=== PATIENT | male | born 1965 ===

== ENCOUNTER 2024-12-11 08:16 | Outpatient (AMB) | payer MEDICAID, SELFPAY ==
--- NOTE | 2024-12-11 08:28 | ORTHONT_ITS ---
Vital signs 12/11/24 08:29 Height 1.7 m Height Method Stated Weight 102.569 kg Weight Measurement Method Standing Scale BMI 35.4 BP 149/93 H Blood Pressure Source Automatic Cuff Blood Pressure Location Left Upper Arm Position Sitting Respiration 18 Pulse 85 Pulse Source Monitor Temp 97.3 F Temp Source Temporal Artery Scan Pulse Oximetry (%) 93 L Oxygen Delivery Method Room Air Med/Allergies Allergies & Medications Allergies No Known Allergies Allergy (Verified 12/11/24 08:30) Medication Reconciliation meloxicam 7.5 mg tablet 7.5 mg PO QDAY #45 tabs 12/11/24 [Rx] meloxicam 7.5 mg tablet 7.5 mg PO QDAY #45 tabs 12/11/24 [Rx] Exam Exam Patient is in no acute distress and is cooperative with the examination today. Breathing is nonlabored. Patient has a normal mood and affect. Bilateral extremities were evaluated and demonstrates sensation intact to light touch. Palpable pedal pulses are present. No significant edema is present. Bilateral hips were examined. The patient has no pain with log roll of the hips. Internal rotation to 30 degrees and external rotation to 30 degrees is painless. Negative FADIR. Right knee was examined today. The right knee is in reasonable alignment. Range of motion from 0-120 degrees. Knee is stable to varus and valgus as well as AP translation with <5mm. Patient has a negative McMurrays. There is no pain with patellofemoral compression and no crepitus noted. The knee is nontender to palpation. Left knee was examined today. The left knee is in varus alignment. Range of motion from 0-115 degrees. Knee is stable to varus and valgus as well as AP translation with <5mm. Patient has a negative McMurrays. There is no pain with patellofemoral compression and no crepitus noted. The knee is tender to palpation medially. Nonweightbearing x-rays were reviewed. This demonstrates mild to moderate arthritis. There are osteophytes present. He also has a MRI which demonstrates medial lateral meniscus tear as well as severe arthritis Assessment and Plan Problem List (1) Arthritis of left knee: Status: Acute Plan: Patient is a 59-year-old male with left knee pain and left knee arthritis. He has an MRI this demonstrates a degenerative meniscal tear as well as arthritis. We discussed nonoperative operative options. He has not had injections or anti-inflammatories. Will start him with. He will need to get weightbearing x- rays and we will see him for this is done. Office Procedures GNS Level of Care Nursing/Assessment Patient Status: Initial/New Patient Nursing Assessment/Reassesment: Medication Reconciliation, Update PMH in EMR and Vital Signs Coordination of Care: Complex Care and Chronic Disease 1-5, Education Complex Pt/Fam, Consent,records obtained, informed consent, 1 Ins Authorization, Lab and Imaging orders, Results/Orders obtained and Staff clarify orders Special Needs: Language special needs New Patient Charge New Patient Point Assignment: 1124 New Patient Point Charge: GEODETIC ADVISOR Level 4 ([id number]) MA Intake Visit Data Collection New Patient or Established: New Patient (never been to [facility]) Reason for Visit:: LEFT KNEE MEDIAL MENISCUS TEAR Seen by Clinical Staff ONLY (RN/MA): No Inside Contractor Sales Required: Yes PCP or OBGYN visit in last 3 months: Yes Hx Now: No Do You Feel Safe at Home: Yes Authorities Contacted: N/A Questionairres Past Medical History Past Medical History Have you ever been diagnosed with any of the following: Subjective Visit Visit for: new patient and knee (LEFT) Immunization / Flu Flu Vaccine in the Last 12 Months: No Flu Vaccine Exclusion Criteria: No Exclusion Criteria History of Present Illness Chief complaint: Left knee pain Juan is a pleasant 59-year-old male with 1 year of left knee pain. This came out of the blue. He has tried 4 sessions of physical therapy as well as ibuprofen. The pain is medially and on the back of his knee. Personal History Occupation: HOSPICE CASE MANAGER Pain Pain level (0-10): 6 Pain duration: WITH MOVEMENT Pain location: inside (medial), outside (lateral), anterior and posterior Pain quality: sharp and aching Pain timing: increases with activity and stairs Associated signs & symptoms: none Ambulatory data Ambulatory device: none Treatments Improvement with previous injections: No Number of Physical Therapy sessions: 12 Improvement with PT: No Improvement with NSAIDS: no Review of Systems Review of Systems: All systems negative unless otherwise noted in HPI.
[2024-12-11 08:29] VITALS: BP 149/93; PULSE 85; RESP 18; TEMP 36.3; O2SAT 93; BMI 35.4
== END 2024-12-11 08:56 | disposition home or self-care (01) ==
PROVIDERS: PCP Family Medicine; Referring Provider Family Medicine; Supervising Provider Orthopaedic Surgery Adult Reconstructive Orthopaedic Surgery; Visit Provider Orthopaedic Surgery Adult Reconstructive Orthopaedic Surgery
DX: M17.12 Unilateral primary osteoarthritis, left knee (principal); M25.562 Pain in left knee
CPT/HCPCS: 99204; G0463

== ENCOUNTER 2024-12-28 10:29 | Outpatient (AMB) | payer MEDICAID, SELFPAY ==
[2024-12-28 11:01] VITALS: BP 138/90; PULSE 82; RESP 18; TEMP 36.4; O2SAT 95; BMI 36.1
--- NOTE | 2024-12-28 11:01 | PD.ORTHCLVIS ---
Vital signs 12/28/24 11:01 Height 1.7 m Height Method Stated Weight 104.581 kg Weight Measurement Method Standing Scale BMI 36.1 BP 138/90 H Blood Pressure Source Automatic Cuff Blood Pressure Location Left Upper Arm Position Sitting Respiration 18 Pulse 82 Pulse Source Monitor Temp 97.6 F Temp Source Temporal Artery Scan Pulse Oximetry (%) 95 Oxygen Delivery Method Room Air Med/Allergies Allergies & Medications Allergies No Known Allergies Allergy (Verified 12/28/24 11:02) Medication Reconciliation meloxicam 7.5 mg tablet 7.5 mg PO QDAY #45 tabs 12/11/24 [Rx Confirmed 12/28/24] meloxicam 7.5 mg tablet 7.5 mg PO QDAY #45 tabs 12/11/24 [Rx Confirmed 12/28/24] Exam Exam Patient is in no acute distress and is cooperative with the examination today. Breathing is nonlabored. Patient has a normal mood and affect. Bilateral extremities were evaluated and demonstrates sensation intact to light touch. Palpable pedal pulses are present. No significant edema is present. Bilateral hips were examined. The patient has no pain with log roll of the hips. Internal rotation to 30 degrees and external rotation to 30 degrees is painless. Negative FADIR. Right knee was examined today. The right knee is in reasonable alignment. Range of motion from 0-120 degrees. Knee is stable to varus and valgus as well as AP translation with <5mm. Patient has a negative McMurrays. There is no pain with patellofemoral compression and no crepitus noted. The knee is nontender to palpation. Left knee was examined today. The left knee is in varus alignment. Range of motion from 0-115 degrees. Knee is stable to varus and valgus as well as AP translation with <5mm. Patient has a negative McMurrays. There is no pain with patellofemoral compression and no crepitus noted. The knee is tender to palpation medially. Nonweightbearing x-rays were reviewed. This demonstrates mild to moderate arthritis. There are osteophytes present. He also has a MRI which demonstrates medial lateral meniscus tear as well as severe arthritis Assessment and Plan Problem List (1) Arthritis of left knee: Status: Acute Plan: Patient is a 59-year-old male with left knee pain and left knee arthritis. She tried to get x-rays at [facility] and was told that he needed authorization. I totally get x-rays here because it is unusual that they need authorization first for an xray Office Procedures GNS Level of Care Nursing/Assessment Patient Status: Established Patient Nursing Assessment/Reassesment: Medication Reconciliation, Update PMH in EMR and Vital Signs Coordination of Care: Complex Care and Chronic Disease 1-5, Education Complex Pt/Fam, Consent,records obtained, informed consent, Lab and Imaging orders, Results/Orders obtained and Staff clarify orders Special Needs: Language special needs Established Patient Charge Established Patient Point Assignment: 110 Established Patient Point Charge: EP Level 3 (80-115) MA Intake Visit Data Collection New Patient or Established: Established Patient (seen at [facility] within 3 years) Reason for Visit:: FOLLOW UP Seen by Clinical Staff ONLY (RN/MA): No Product Lead Required: Yes PCP or OBGYN visit in last 3 months: Yes Hx Now: No Do You Feel Safe at Home: Yes Authorities Contacted: N/A Questionairres Past Medical History Past Medical History Have you ever been diagnosed with any of the following: Subjective Visit Visit for: follow up visit and knee Immunization / Flu Flu Vaccine in the Last 12 Months: No Flu Vaccine Exclusion Criteria: No Exclusion Criteria History of Present Illness Chief complaint: Left knee pain Juan is a pleasant 59-year-old male with 1 year of left knee pain. This came out of the blue. He has tried 4 sessions of physical therapy as well as ibuprofen. The pain is medially and on the back of his knee. Personal History Occupation: WEB DEVELOPER Pain Pain level (0-10): 0 Pain duration: WITH MOVEMENT Pain location: inside (medial), outside (lateral), anterior and posterior Pain quality: sharp and aching Pain timing: increases with activity and stairs Associated signs & symptoms: none Ambulatory data Ambulatory device: none Treatments Improvement with previous injections: No Number of Physical Therapy sessions: 12 Improvement with PT: No Improvement with NSAIDS: no Review of Systems Review of Systems: All systems negative unless otherwise noted in HPI.
== END 2024-12-28 11:19 | disposition home or self-care (01) ==
LOC: HODSRG 10:29
PROVIDERS: PCP Family Medicine; Referring Provider Family Medicine; Supervising Provider Orthopaedic Surgery Adult Reconstructive Orthopaedic Surgery; Visit Provider Orthopaedic Surgery Adult Reconstructive Orthopaedic Surgery
DX: M17.12 Unilateral primary osteoarthritis, left knee (principal); M25.562 Pain in left knee
CPT/HCPCS: 99213; G0463

== ENCOUNTER → 2024-12-28 | Outpatient (CLI) | payer MEDICAID, SELFPAY ==
--- NOTE | 2024-12-28 | XR_ITS ---
Examination: Knee bilateral, 8 views Technique: Knee AP, lateral, oblique each knee total 6 views, right and left axial knees 2 views, total 8 views Date and time of exam: December 28, 2024 1319 hours INDICATIONS: Bilateral knee pain beginning one year ago FINDINGS: Bilateral moderate to advanced tricompartment osteoarthritis, most severe medial joint spaces No patellar dislocation Moderate osteopenia No fractures IMPRESSION: Bilateral moderate to advanced tricompartment osteoarthritis, most severe medial joint spaces
== END | disposition home or self-care (01) ==
PROVIDERS: PCP Family Medicine; Referring Provider Orthopaedic Surgery Adult Reconstructive Orthopaedic Surgery; Visit Provider Orthopaedic Surgery Adult Reconstructive Orthopaedic Surgery
DX: M17.0 Bilateral primary osteoarthritis of knee (principal)
CPT/HCPCS: 73564

== ENCOUNTER 2025-01-01 11:05 | Outpatient (AMB) | payer MEDICAID, SELFPAY ==
--- NOTE | 2025-01-01 11:03 | PD.ORTHTELE ---
Med/Allergies Allergies & Medications Allergies No Known Allergies Allergy (Verified 01/01/25 11:03) Medication Reconciliation meloxicam 7.5 mg tablet 7.5 mg PO QDAY #45 tabs 12/11/24 [Rx Confirmed 01/01/25] meloxicam 7.5 mg tablet 7.5 mg PO QDAY #45 tabs 12/11/24 [Rx Confirmed 01/01/25] Subjective Visit Visit for: follow up visit, knee (LEFT) and x-rays Immunization / Flu Flu Vaccine in the Last 12 Months: No Flu Vaccine Exclusion Criteria: No Exclusion Criteria History of Present Illness Chief complaint: Claudine Martinez is a pleasant 59-year-old male with 1 year of left knee pain. This came out of the blue. He has tried 4 sessions of physical therapy as well as ibuprofen. The pain is medially and on the back of his knee. Pain Pain level (0-10): 0 Associated signs & symptoms: none Ambulatory data Ambulatory device: none Treatments Improvement with previous injections: No Improvement with PT: No Improvement with NSAIDS: no Review of Systems Review of Systems: All systems negative unless otherwise noted in HPI. Assessment and Plan Problem List (1) Arthritis of left knee: Status: Acute Plan: Patient is a 59-year-old male with left knee pain and left knee arthritis. We discussed his x-ray results and he has severe left knee arthritis. We thus discussed nonoperative treatment including injections and anti-inflammatories. We will see him for an injection at the next visit. Office Procedures GNS Level of Care Nursing/Assessment Patient Status: Established Patient Nursing Assessment/Reassesment: Medication Reconciliation, Update PMH in EMR and Vital Signs Coordination of Care: Complex Care and Chronic Disease 1-5, Education Complex Pt/Fam, Consent,records obtained, informed consent, Results/Orders obtained and Staff clarify orders Special Needs: Language special needs Established Patient Charge Established Patient Point Assignment: 95 Telehealth Telemed Phone/Video with patient at home & Dr,PA,PLASTICS REPAIRER: Yes
== END 2025-01-01 11:45 | disposition home or self-care (01) ==
PROVIDERS: PCP Family Medicine; Referring Provider Family Medicine; Supervising Provider Orthopaedic Surgery Adult Reconstructive Orthopaedic Surgery; Visit Provider Orthopaedic Surgery Adult Reconstructive Orthopaedic Surgery
DX: M17.12 Unilateral primary osteoarthritis, left knee (principal); M25.562 Pain in left knee
CPT/HCPCS: 99212; G0463